=== PATIENT | male | born 1955 | race Caucasian/White ===

== ENCOUNTER 2024-11-21 16:57 | Inpatient (IN) ==
[2024-11-21 17:36] LABS: Basophils # (auto) 0.05 K/uL (0.00-0.20); Eosinophils # (auto) 0.03 K/uL (0.00-0.50); Eosinophils % (auto) 0.6 %; Hematocrit (blood only) 49.3 % (42.0-52.0); Hemoglobin 17.1 g/dl (14.0-18.0); Immature Granulocytes # (auto) 0.02 K/uL (0.01-0.20); Immature Granulocytes % (auto) 0.4 %; Lymphocytes # (auto) 0.65 K/uL (1.20-3.40); Lymphocytes % (auto) 12.7 %; Mean Corpuscular Hemoglobin 29.4 pg (25.0-34.0); Mean Corpuscular Hgb Conc 34.7 g/dL (32.0-36.0); Mean Corpuscular Volume 84.7 fL (80.0-100.0); Mean Platelet Volume 10.1 fL (9.4-12.4); Monocytes % (auto) 13.7 %; Neutrophils # (auto) 3.66 K/uL (1.40-6.50); Neutrophils % (auto) 71.6 %; Platelet Count 211 K/uL (130-400); RDW Coefficient of Variation 12.9 % (11.5-14.5); RDW Standard Deviation 39.7 fL (36.4-46.3); Red Blood Count 5.82 M/uL (4.70-6.10); White Blood Count 5.11 K/ul (4.8-10.8)
[2024-11-21 17:54] LABS: Albumin Level 4.2 gm/dl (3.4-5.0); BUN Creatinine Ratio 7.7 (10-20); Bilirubin Direct 0.1 mg/dl (0-0.2); Bilirubin,Total 0.6 mg/dl (0.2-1.0); Calcium 9.2 mg/dl (8.6-10.3); Creatinine Clr Calc Pharmacy 54.4 ml/min; Magnesium 1.8 mg/dl (1.7-2.4); Potassium 4.1 mmol/L (3.5-5.1); Total Protein 7.9 gm/dl (6.0-8.3)
[2024-11-21 18:00] LABS: Troponin I High Sensitivity 4.8 pg/ml (0-20)
[2024-11-21 18:05] LABS: Appearance Urine Clear (Clear); Bacteria Urine Automated None Seen (None Seen); Bilirubin Urine Negative (Negative); Blood Urine Negative (Negative); Cast Urine Automated 0-2 /lpf (0-2); Color Urine Yellow; Epithelial Cell Urine Auto 0-2 /hpf (0-2); Glucose Urine UA 3+ (Negative); Ketones Urine Trace (Negative); Leukocyte Esterase Urine Negative (Negative); Nitrite Urine Negative (Negative); Protein Urine 1+ (Negative); RBC Urine Automated 0-2 /hpf (0-2); Specific Gravity Urine 1.015 (1.000-1.030); Urobilinogen Urine Negative (Negative); WBC Urine Automated 0-5 /hpf (0-5); pH Urine 5.5 (4.5-7.5)
--- NOTE | 2024-11-21 18:12 | Emergency Department Note ---
Impression & Plan Fall, Weakness, Hypoxia, Influenza A ED Provider Note NAME: ELSIE BELL AGE: 69 SEX: Male INFORMANT: Patient and family ED PROVIDER(S): Jamal Davila MD CHIEF COMPLAINT: Multiple falls PLAN: Disposition: Admitted Outpatient prescription management: none Referral: None MEDICAL DECISION MAKING: Patient presented because of multiple falls. He was generally weak. His O2 saturation was low. Patient denied any trauma from the falls. Physical examination was benign other than his O2 requirement. Patient underwent CT imaging of the head as well as chest given his complaints of chronic headache, the fall, and his weakness. Patient had an unremarkable CT scan of the head as well as of the chest. I refer you to the EMR for further details. Patient's BioFire testing revealed the presence of influenza. This could explain his hypoxia and the increased weakness resulting in the multiple falls over the last 24 hours. Tickborne illness testing was added due to his chronic headache and fever complaints. Tamiflu was ordered. Discussed the need for further evaluation and management in the hospital and patient and family in agreement. Consultation was made with Dr. López Betancourt of the [facility] service. Patient was evaluated in the ER for further management. Care/management discussed with: sustainability manager Level of care consideration(s): After review of the information above and other included data, I feel the patient requires escalation of care to admission Triage Nursing notes: reviewed and agree them. Vital Signs: reviewed and remarkable for mild hypoxia Additional History obtained from: Family Chronic Medical/Social Conditions affecting care: Diabetes Prior/ Outside/ External records reviewed: none Differential Diagnosis: Infection, dehydration, metabolic abnormality, hypo/hyperglycemia, electrolyte disturbance, anemia, hypoxia, cardiac sources, intracerebral event, toxicologic, neurologic, as well as other pathologies. Diagnostics, independently interpreted by me: ECG: none Cardiac Monitoring: Cardiac monitoring ordered by me: The patient was placed on continuous cardiac monitoring and observed. It revealed a normal sinus rhythm at 82 beats per minute without ectopy or evidence of dysrhythmia. Medical decision rules: none Imaging studies: Head CT: A noncontrast CT scan of the head was performed and was negative for tumor, fracture, intracranial hemorrhage, or other acute pathology. CT scan of the chest is negative for pulmonary embolism or pneumonia. I refer you to the EMR for further details. HPI: 69 year old Male arrives for evaluation of a fall x 4. This started yesterday. Feels weak. Has been dealing with fatigue and fevers for 13 months. The patient also notes the following associated symptoms, headache x 13 months. Denies direct head trauma. Denies injury. The patient has been given no medication for relieving factors. Current pain is rated as 8/10. Pt denies LOC, fevers, chills, diaphoresis, visual changes, neck pain, chest pain, breathing difficulties, nausea, vomiting, abdominal pain, back pain, melena, hematochezia, urinary symptoms, numbness, lymphadenopathy, rash, or other complaints. PAST MEDICAL HISTORY: See Below, gout, elevated IgA levels PAST SURGICAL HISTORY: See Below, SOCIAL HISTORY: See Below, HOME MEDICATIONS: See Below ALLERGIES: See Below VITALS: See Below PHYSICAL EXAMINATION: GENERAL: Awake, fatigue-appearing, in no distress HENT: Normocephalic, atraumatic. Oropharynx unremarkable. EYES: Normal conjunctiva. Sclera non-icteric. NECK: Inspection normal. Non-tender. Supple. No nuchal rigidity. FROM. No masses. RESPIRATORY: Clear to auscultation. No wheezes. No rales. Normal respiratory effort. CARDIAC: Normal rate. Normal rhythm. No murmurs. No rubs. Extremities warm and well perfused. Pulses equal. No JVD. GI: Soft, non-distended. No tenderness to palpation. No rebound or guarding. No masses. RECTAL: Deferred. MUSCULOSKELETAL: Atraumatic. Chest examination reveals no tenderness. The back is symmetrical on inspection without obvious abnormality. There is no CVA tenderness to palpation. No joint edema. LOWER EXTREMITIES: Calves are equal size bilaterally and non-tender. No edema. No discoloration. NEURO: Normal sensorium. No sensory or motor deficits noted. SKIN: No rash or jaundice noted. PROCEDURES: none CRITICAL CARE: none OBSERVATION NOTE: none Past Med/Surg History Problem List (Updated 11/21/24 @ 23:43 by Jamal Davila MD) Influenza A (Acute) Hypoxia (Acute) Fall (Acute) Idiopathic polyneuropathy Gout Weakness (Acute) Arthralgia Myalgia Medical History Hx of diabetes mellitus Hypothyroidism Social History (Updated 05/03/24 @ 12:59 by Cristian Cooley DO) Smoking Status: Never smoker Hx Alcohol Use: No Preferred Language: Vietnamese Home Health Clinical Liaison Required: No Feels Safe at Home: Yes Allergies Allergies Allergy/AdvReac Type Severity Reaction Status Date / Time lidocaine AdvReac Mild Rash Verified 11/21/24 22:59 Home Meds Home Medications Medication Instructions Recorded Confirmed Vitamin D3 See Rx Instructions .Route .COMPLEX 12/22/23 11/21/24 levothyroxine 137 mcg tablet 137 mcg PO HS 12/22/23 11/21/24 lisinopril 5 mg tablet 5 mg PO DAILY 12/22/23 11/21/24 metformin 500 mg tablet,extended 1,500 mg PO UD 12/22/23 11/21/24 release 24 hr aspirin 81 mg tablet,delayed 81 mg PO DAILY 05/03/24 11/21/24 release (Adult Low Dose Aspirin) atorvastatin 40 mg tablet 40 mg PO DAILY 05/03/24 11/21/24 coQ10 (ubiquinol) 100 mg capsule 100 mg PO BID 11/21/24 11/21/24 duloxetine 60 mg capsule,delayed 60 mg PO DAILY 11/21/24 11/21/24 release duloxetine 60 mg capsule,delayed 60 mg PO DAILY 11/21/24 11/21/24 release melatonin 10 mg tablet 10 mg PO HS PRN Sleep 11/21/24 11/21/24 Previous Rx's Medication Instructions Recorded allopurinol 100 mg tablet 100 mg PO DAILY #90 tabs 07/30/24 Results & Data (ED) Vital Signs Vital Signs - 24 hr 11/21/24 17:10 11/21/24 17:36 11/21/24 17:45 Temperature 37.3 C Temperature Source Oral Pulse Rate 80 80 Pulse Rate [Apical] 78 Pulse Rate from SpO2 Sensor Pulse Rhythm Regular Pulse Strength Normal Respiratory Rate 20 16 18 Respiratory Effort / Characteristics Non-Labored Spontaneous Non-Labored Spontaneous Respiratory Depth Normal Normal Blood Pressure 117/75 Blood Pressure [Right Arm] 133/91 Blood Pressure Mean 89 Blood Pressure Mean [Right Arm] 105 Blood Pressure Position Sitting Blood Pressure Position [Right Arm] Semi-fowlers Pulse Oximetry 89 L 96 95 Oxygen Delivery Method Room Air Nasal Cannula Nasal Cannula Oxygen Flow Rate 2 2 Sepsis Recent Fever Within 48 Hours Yes Sepsis New/Unexplained Change in Mental Status N/A Sepsis Action Taken by Nursing No Action Required 11/21/24 18:00 11/21/24 18:13 11/21/24 18:15 Temperature Temperature Source Pulse Rate 79 81 Pulse Rate [Apical] 82 Pulse Rate from SpO2 Sensor Pulse Rhythm Pulse Strength Respiratory Rate 18 21 Respiratory Effort / Characteristics Non-Labored Spontaneous Respiratory Depth Normal Blood Pressure 129/94 Blood Pressure [Right Arm] Blood Pressure Mean 113 Blood Pressure Mean [Right Arm] Blood Pressure Position Blood Pressure Position [Right Arm] Pulse Oximetry 95 95 Oxygen Delivery Method Nasal Cannula Nasal Cannula Oxygen Flow Rate 2 2 Sepsis Recent Fever Within 48 Hours Sepsis New/Unexplained Change in Mental Status Sepsis Action Taken by Nursing 11/21/24 18:15 11/21/24 18:18 11/21/24 18:45 Temperature Temperature Source Pulse Rate 84 Pulse Rate [Apical] 86 Pulse Rate from SpO2 Sensor 82 Pulse Rhythm Pulse Strength Respiratory Rate 23 17 Respiratory Effort / Characteristics Non-Labored Spontaneous Respiratory Depth Normal Blood Pressure 129/94 Blood Pressure [Right Arm] 140/99 Blood Pressure Mean 113 Blood Pressure Mean [Right Arm] 112 Blood Pressure Position Blood Pressure Position [Right Arm] Semi-fowlers Pulse Oximetry 95 95 Oxygen Delivery Method Nasal Cannula Oxygen Flow Rate 2 Sepsis Recent Fever Within 48 Hours Sepsis New/Unexplained Change in Mental Status Sepsis Action Taken by Nursing 11/21/24 18:46 11/21/24 19:00 11/21/24 19:00 Temperature Temperature Source Pulse Rate 82 Pulse Rate [Apical] 83 Pulse Rate from SpO2 Sensor 82 Pulse Rhythm Pulse Strength Respiratory Rate 20 21 Respiratory Effort / Characteristics Non-Labored Spontaneous Respiratory Depth Normal Blood Pressure 140/99 Blood Pressure [Right Arm] 124/79 Blood Pressure Mean 99 Blood Pressure Mean [Right Arm] 94 Blood Pressure Position Blood Pressure Position [Right Arm] Semi-fowlers Pulse Oximetry 95 94 Oxygen Delivery Method Nasal Cannula Oxygen Flow Rate 2 Sepsis Recent Fever Within 48 Hours Sepsis New/Unexplained Change in Mental Status Sepsis Action Taken by Nursing 11/21/24 19:00 11/21/24 19:00 11/21/24 19:15 Temperature Temperature Source Pulse Rate Pulse Rate [Apical] Pulse Rate from SpO2 Sensor Pulse Rhythm Pulse Strength Respiratory Rate Respiratory Effort / Characteristics Respiratory Depth Blood Pressure 124/79 124/79 117/83 Blood Pressure [Right Arm] Blood Pressure Mean 92 92 90 Blood Pressure Mean [Right Arm] Blood Pressure Position Blood Pressure Position [Right Arm] Pulse Oximetry Oxygen Delivery Method Oxygen Flow Rate Sepsis Recent Fever Within 48 Hours Sepsis New/Unexplained Change in Mental Status Sepsis Action Taken by Nursing 11/21/24 19:15 11/21/24 19:21 11/21/24 19:30 Temperature Temperature Source Pulse Rate 85 85 82 Pulse Rate [Apical] Pulse Rate from SpO2 Sensor 85 85 83 Pulse Rhythm Pulse Strength Respiratory Rate 17 21 17 Respiratory Effort / Characteristics Respiratory Depth Blood Pressure Blood Pressure [Right Arm] Blood Pressure Mean Blood Pressure Mean [Right Arm] Blood Pressure Position Blood Pressure Position [Right Arm] Pulse Oximetry 93 92 93 Oxygen Delivery Method Oxygen Flow Rate Sepsis Recent Fever Within 48 Hours Sepsis New/Unexplained Change in Mental Status Sepsis Action Taken by Nursing 11/21/24 19:45 11/21/24 19:45 11/21/24 19:48 Temperature Temperature Source Pulse Rate 82 Pulse Rate [Apical] Pulse Rate from SpO2 Sensor 84 Pulse Rhythm Pulse Strength Respiratory Rate 19 Respiratory Effort / Characteristics Respiratory Depth Blood Pressure 131/67 131/67 Blood Pressure [Right Arm] Blood Pressure Mean 82 82 Blood Pressure Mean [Right Arm] Blood Pressure Position Blood Pressure Position [Right Arm] Pulse Oximetry 94 Oxygen Delivery Method Oxygen Flow Rate Sepsis Recent Fever Within 48 Hours Sepsis New/Unexplained Change in Mental Status Sepsis Action Taken by Nursing 11/21/24 20:15 11/21/24 20:15 11/21/24 20:21 Temperature Temperature Source Pulse Rate 87 Pulse Rate [Apical] Pulse Rate from SpO2 Sensor 87 Pulse Rhythm Pulse Strength Respiratory Rate 17 Respiratory Effort / Characteristics Respiratory Depth Blood Pressure 131/83 131/83 Blood Pressure [Right Arm] Blood Pressure Mean 99 99 Blood Pressure Mean [Right Arm] Blood Pressure Position Blood Pressure Position [Right Arm] Pulse Oximetry 92 Oxygen Delivery Method Oxygen Flow Rate Sepsis Recent Fever Within 48 Hours Sepsis New/Unexplained Change in Mental Status Sepsis Action Taken by Nursing 11/21/24 20:59 Temperature Temperature Source Pulse Rate Pulse Rate [Apical] 80 Pulse Rate from SpO2 Sensor Pulse Rhythm Pulse Strength Respiratory Rate 26 H Respiratory Effort / Characteristics Non-Labored Spontaneous Respiratory Depth Normal Blood Pressure Blood Pressure [Right Arm] 124/85 Blood Pressure Mean Blood Pressure Mean [Right Arm] 98 Blood Pressure Position Blood Pressure Position [Right Arm] Semi-fowlers Pulse Oximetry 92 Oxygen Delivery Method Nasal Cannula Oxygen Flow Rate 2 Sepsis Recent Fever Within 48 Hours Sepsis New/Unexplained Change in Mental Status Sepsis Action Taken by Nursing Laboratory Data 11/21/24 15:18 11/21/24 17:21 Lab Results 11/21/24 11/21/24 11/21/24 Range/Units 15:18 17:21 17:42 WBC 5.11 (4.8-10.8) K/ul RBC 5.82 (4.70-6.10) M/uL Hgb 17.1 (14.0-18.0) g/dl Hct 49.3 (42.0-52.0) % MCV 84.7 (80.0-100.0) fL MCH 29.4 (25.0-34.0) pg MCHC 34.7 (32.0-36.0) g/dL RDW Std Deviation 39.7 (36.4-46.3) fL RDW Coeff of Tori 12.9 (11.5-14.5) % Plt Count 211 (130-400) K/uL MPV 10.1 (9.4-12.4) fL Immature Gran % (Auto) 0.4 % Neut % (Auto) 71.6 % Lymph % (Auto) 12.7 % Lamb % (Auto) 13.7 % Eos % (Auto) 0.6 % Baso % (Auto) 1.0 % Neut # (Auto) 3.66 (1.40-6.50) K/uL Lymph # (Auto) 0.65 L (1.20-3.40) K/uL Lamb # (Auto) 0.70 H (0.11-0.59) K/uL Eos # (Auto) 0.03 (0.00-0.50) K/uL Baso # (Auto) 0.05 (0.00-0.20) K/uL Immature Gran # (Auto) 0.02 (0.01-0.20) K/uL ESR 27 H (0-20) mm/hr Sodium 138 (136-145) mmol/L Potassium 4.1 (3.5-5.1) mmol/L Chloride 103 (98-107) mmol/L Carbon Dioxide 27 (21-32) mmol/L Anion Gap 8 (3-11) BUN 10 (6-23) mg/dl Creatinine 1.30 (0.6-1.4) mg/dl Est Cr Clr Drug Dosing 54.4 ml/min eGFR 59.84 BUN/Creatinine Ratio 7.7 L (10-20) Glucose 179 H (70-99(Fasting)) mg/dl Lactate (0.4-2.0) mmol/L Calcium 9.2 (8.6-10.3) mg/dl Magnesium 1.8 (1.7-2.4) mg/dl Total Bilirubin 0.6 (0.2-1.0) mg/dl Direct Bilirubin 0.1 (0-0.2) mg/dl AST 25 (13-39) U/L ALT 30 (7-52) U/L Alkaline Phosphatase 62 (34-104) U/L Troponin I High Sens 4.8 (0-20) pg/ml C-Reactive Protein 4.12 H (0-0.5) mg/dl Total Protein 7.9 (6.0-8.3) gm/dl Albumin 4.2 (3.4-5.0) gm/dl Procalcitonin 0.09 (0-0.5) ng/ml Urine Color Yellow Urine Appearance Clear (Clear) Urine pH 5.5 (4.5-7.5) Ur Specific Garfield 1.015 (1.000-1.030) Urine Protein 1+ H (Negative) Urine Glucose (UA) 3+ H (Negative) Urine Ketones Trace H (Negative) Urine Blood Negative (Negative) Urine Nitrite Negative (Negative) Urine Bilirubin Negative (Negative) Urine Urobilinogen Negative (Negative) Ur Leukocyte Esterase Negative (Negative) Urine WBC (Auto) 0-5 (0-5) /hpf Urine RBC (Auto) 0-2 (0-2) /hpf U Hyaline Cast (Auto) 0-2 (0-2) /lpf U Epithel Cells (Auto) 0-2 (0-2) /hpf Urine Bacteria (Auto) None Seen (None Seen) Nasal Influ A H1 2008 PCR DETECTED A (NotDetected) Adenovirus (PCR) Not Detected (NotDetected) Anaplasma Smear See Comment Babesia Smear See Comment B. pertussis DNA (PCR) Not Detected (NotDetected) B.parapertussis DNA PCR Not Detected (NotDetected) Lyme Disease Screen Negative (Negative) C. pneumoniae DNA (PCR) Not Detected (NotDetected) Coronavirus OC43 (PCR) Not Detected (NotDetected) Coronavirus HKU1 (PCR) Not Detected (NotDetected) Coronavirus 229E (PCR) Not Detected (NotDetected) SARS-CoV-2 (PCR) Not Detected (NotDetected) Coronavirus NL63 (PCR) Not Detected (NotDetected) Human Metapneumovir PCR Not Detected (NotDetected) Influenza Type B (PCR) Not Detected (NotDetected) M. pneumoniae (PCR) Not Detected (NotDetected) Parainfluenza 1 (PCR) Not Detected (NotDetected) Parainfluenza 2 (PCR) Not Detected (NotDetected) Parainfluenza 3 (PCR) Not Detected (NotDetected) Parainfluenza 4 (PCR) Not Detected (NotDetected) RSV (PCR) Not Detected (NotDetected) Entero/Rhino (PCR) Not Detected (NotDetected) 11/21/24 Range/Units 18:06 WBC (4.8-10.8) K/ul RBC (4.70-6.10) M/uL Hgb (14.0-18.0) g/dl Hct (42.0-52.0) % MCV (80.0-100.0) fL MCH (25.0-34.0) pg MCHC (32.0-36.0) g/dL RDW Std Deviation (36.4-46.3) fL RDW Coeff of Tori (11.5-14.5) % Plt Count (130-400) K/uL MPV (9.4-12.4) fL Immature Gran % (Auto) % Neut % (Auto) % Lymph % (Auto) % Lamb % (Auto) % Eos % (Auto) % Baso % (Auto) % Neut # (Auto) (1.40-6.50) K/uL Lymph # (Auto) (1.20-3.40) K/uL Lamb # (Auto) (0.11-0.59) K/uL Eos # (Auto) (0.00-0.50) K/uL Baso # (Auto) (0.00-0.20) K/uL Immature Gran # (Auto) (0.01-0.20) K/uL ESR (0-20) mm/hr Sodium (136-145) mmol/L Potassium (3.5-5.1) mmol/L Chloride (98-107) mmol/L Carbon Dioxide (21-32) mmol/L Anion Gap (3-11) BUN (6-23) mg/dl Creatinine (0.6-1.4) mg/dl Est Cr Clr Drug Dosing ml/min eGFR BUN/Creatinine Ratio (10-20) Glucose (70-99(Fasting)) mg/dl Lactate 1.4 (0.4-2.0) mmol/L Calcium (8.6-10.3) mg/dl Magnesium (1.7-2.4) mg/dl Total Bilirubin (0.2-1.0) mg/dl Direct Bilirubin (0-0.2) mg/dl AST (13-39) U/L ALT (7-52) U/L Alkaline Phosphatase (34-104) U/L Troponin I High Sens (0-20) pg/ml C-Reactive Protein (0-0.5) mg/dl Total Protein (6.0-8.3) gm/dl Albumin (3.4-5.0) gm/dl Procalcitonin (0-0.5) ng/ml Urine Color Urine Appearance (Clear) Urine pH (4.5-7.5) Ur Specific Garfield (1.000-1.030) Urine Protein (Negative) Urine Glucose (UA) (Negative) Urine Ketones (Negative) Urine Blood (Negative) Urine Nitrite (Negative) Urine Bilirubin (Negative) Urine Urobilinogen (Negative) Ur Leukocyte Esterase (Negative) Urine WBC (Auto) (0-5) /hpf Urine RBC (Auto) (0-2) /hpf U Hyaline Cast (Auto) (0-2) /lpf U Epithel Cells (Auto) (0-2) /hpf Urine Bacteria (Auto) (None Seen) Nasal Influ A H1 2009 PCR (NotDetected) Adenovirus (PCR) (NotDetected) Anaplasma Smear Babesia Smear B. pertussis DNA (PCR) (NotDetected) B.parapertussis DNA PCR (NotDetected) Lyme Disease Screen (Negative) C. pneumoniae DNA (PCR) (NotDetected) Coronavirus OC43 (PCR) (NotDetected) Coronavirus HKU1 (PCR) (NotDetected) Coronavirus 229E (PCR) (NotDetected) SARS-CoV-2 (PCR) (NotDetected) Coronavirus NL63 (PCR) (NotDetected) Human Metapneumovir PCR (NotDetected) Influenza Type B (PCR) (NotDetected) M. pneumoniae (PCR) (NotDetected) Parainfluenza 1 (PCR) (NotDetected) Parainfluenza 2 (PCR) (NotDetected) Parainfluenza 3 (PCR) (NotDetected) Parainfluenza 4 (PCR) (NotDetected) RSV (PCR) (NotDetected) Entero/Rhino (PCR) (NotDetected) Administered Medications Discontinued Medications Magnesium Sulfate/Dextrose (Magnesium Sulfate / D5w) 1 gm in 100 mls @ 50 mls/hr IV ONE ONE Stop: 11/21/24 23:10 Last Infusion: 11/21/24 23:32 Dose: Infused Documented By: Admin: 11/21/24 21:28 Dose: 50 mls/hr Documented By: SAMRA Ioversol (Optiray 320 125ml) 118 ml IV ONCE ONE Stop: 11/21/24 18:48 Last Admin: 11/21/24 18:47 Dose: 118 ml Documented By: ELEANOR Oseltamivir Phosphate (Oseltamivir Phosphate 75 Mg Cap) 75 mg PO NOW STA; Protocol Stop: 11/21/24 19:59 Last Admin: 11/21/24 20:59 Dose: 75 mg Documented By: SAMRA Imaging Data Radiologist's Impression: Chest CTA 11/21/24 18:12 Clinical history: Weakness and hypoxia Technique: Axial computed tomography images were obtained of the chest after the administration of intravenous contrast according to the CT angiogram protocol Findings: There is no definite sign of pulmonary embolism. There is subsegmental atelectasis in both lower lobes. The lungs otherwise appear clear without infiltrate or mass. There is no pleural effusion or pneumothorax. There is no sign of pulmonary fibrosis or other diffuse interstitial process. No endobronchial lesion is seen There is no mediastinal, hilar, or axillary adenopathy. The thoracic aorta appears unremarkable with no sign of aneurysm or dissection. There is no pericardial effusion. There is extensive coronary atherosclerosis There are multiple gallstones. There is no definite sign of acute cholecystitis. There is a small hiatal hernia. No fracture is seen. No focal osseous lesion is evident Impression: 1. No definite sign of pulmonary embolism 2. Mild bilateral lower lobe atelectasis 3. Small hiatal hernia 4. Cholelithiasis 5. Extensive coronary atherosclerosis Electronically signed by Murali Schmitt 11-21-2024 7:[address] 11/21/24 18:12 Clinical History: Headache Technique: Axial computed tomography images were obtained of the brain without intravenous contrast. Findings: There is cerebral atrophy, within expected limits for the patient's age. Areas of decreased attenuation are seen within the periventricular white matter, likely representing chronic small vessel ischemic disease. There is no definite sign of acute or old infarction. No intracranial hemorrhage is evident. No definite mass lesion is seen on this noncontrast examination. There is no midline shift or other form of herniation. There is mild ventricular prominence that is likely due to the atrophy. No definite hydrocephalus is seen. No fracture is identified. The orbits and the visualized paranasal sinuses appear unremarkable. The mastoid air cells appear clear. Impression: 1. Cerebral atrophy and chronic small vessel ischemic disease 2. Otherwise unremarkable noncontrast CT of the brain Electronically signed by Murali Schmitt 11-21-2024 6:57 PM Discharge Plan Visit Data Chief Complaint: Illness Stated Complaint: WEAKNESS, FALL x2 ED Provider: Jamal Davila Discharge Problem: Fall, Weakness, Hypoxia, Influenza A Discharge Instructions Interventions: ED Discharge Assessment Last Done: 11/21/24 22:11
[2024-11-21 18:35] LABS: C Reactive Protein 4.12 mg/dl (0-0.5)
[2024-11-21] MEDS: OPTIRAY 320 125ml IV ONE (18:47)
[2024-11-21 18:58] LABS: Adenovirus PCR Not Detected (NotDetected); Bordetella parapertussis PCR Not Detected (NotDetected); Bordetella pertussis PCR Not Detected (NotDetected); Chlamydia pneumoniae PCR Not Detected (NotDetected); Coronavirus 229E PCR Not Detected (NotDetected); Coronavirus CoV-2 (COVID19)PCR Not Detected (NotDetected); Coronavirus HKU1 PCR Not Detected (NotDetected); Coronavirus NL63 PCR Not Detected (NotDetected); Coronavirus OC43PCR Not Detected (NotDetected); Human Metapneumovirus PCR Not Detected (NotDetected); Influenza A (H1 2009) PCR DETECTED (NotDetected); Influenza B PCR Not Detected (NotDetected); Mycoplasma pneumoniae PCR Not Detected (NotDetected); Parainfluenza Virus 1 PCR Not Detected (NotDetected); Parainfluenza Virus 2 PCR Not Detected (NotDetected); Parainfluenza Virus 3 PCR Not Detected (NotDetected); Parainfluenza Virus 4 PCR Not Detected (NotDetected); Respiratory Syncytial VirusPCR Not Detected (NotDetected); Rhinovirus/Enterovirus PCR Not Detected (NotDetected)
--- NOTE | 2024-11-21 18:58 | CT Scan Report ---
Clinical History: Headache Technique: Axial computed tomography images were obtained of the brain without intravenous contrast. Findings: There is cerebral atrophy, within expected limits for the patient's age. Areas of decreased attenuation are seen within the periventricular white matter, likely representing chronic small vessel ischemic disease. There is no definite sign of acute or old infarction. No intracranial hemorrhage is evident. No definite mass lesion is seen on this noncontrast examination. There is no midline shift or other form of herniation. There is mild ventricular prominence that is likely due to the atrophy. No definite hydrocephalus is seen. No fracture is identified. The orbits and the visualized paranasal sinuses appear unremarkable. The mastoid air cells appear clear. Impression: 1. Cerebral atrophy and chronic small vessel ischemic disease 2. Otherwise unremarkable noncontrast CT of the brain Electronically signed by Murali Schmitt 11-21-2024 6:57 PM
--- NOTE | 2024-11-21 19:01 | CT Scan Report ---
Clinical history: Weakness and hypoxia Technique: Axial computed tomography images were obtained of the chest after the administration of intravenous contrast according to the CT angiogram protocol Findings: There is no definite sign of pulmonary embolism. There is subsegmental atelectasis in both lower lobes. The lungs otherwise appear clear without infiltrate or mass. There is no pleural effusion or pneumothorax. There is no sign of pulmonary fibrosis or other diffuse interstitial process. No endobronchial lesion is seen There is no mediastinal, hilar, or axillary adenopathy. The thoracic aorta appears unremarkable with no sign of aneurysm or dissection. There is no pericardial effusion. There is extensive coronary atherosclerosis There are multiple gallstones. There is no definite sign of acute cholecystitis. There is a small hiatal hernia. No fracture is seen. No focal osseous lesion is evident Impression: 1. No definite sign of pulmonary embolism 2. Mild bilateral lower lobe atelectasis 3. Small hiatal hernia 4. Cholelithiasis 5. Extensive coronary atherosclerosis Electronically signed by Murali Schmitt 11-21-2024 7:01 PM
--- NOTE | 2024-11-21 20:23 | History & Physical Report ---
Date of Service November 21, 2024 Assessment & Plan (1) Hypoxia: (2) Influenza A: (3) Fall: (4) Generalized weakness: (5) Ambulatory dysfunction: (6) Hypomagnesemia: (7) Fatigue: (8) Idiopathic polyneuropathy: (9) Weight loss, unintentional: (10) Urinary incontinence: Plan Patient is a 69-year-old male with a past medical history of gout, hyperlipidemia, T2DM, hypothyroidism, insomnia, and ongoing fatigue and fever x 1 year with essentially negative workup. Patient presented to the ED after having 4 falls in the past 24 hours secondary to weakness found to be due to influenza A. Patient came hypoxic at 89% on room air and was 2 L on nasal cannula on admission. Patient's family is concerned about taking care of him at home with falls so he is being admitted for PT/OT evals and case management is consulted. #Hypoxia/Influenza A 89 on RA -> 2 L NC CTA showing no acute changes, mild bl LL atelectasis wean O2 as tolerated continue Tamiflu Tylenol prn, Tessalon Perles, Mucinex incentive spirometry isolation precautions #fall/ambulatory dysfunction/generalized weakness 4 falls in past 24 hours 2/2 weakness from influenza A head CT negative for acute changes PT/OT ordered fall and aspiration precautions case management consult - patients considering assistance at home #chronic fever/myalgia/fatigue has had extensive workup, follows with hematology, rheumatology, neurology did have elevated IgA and had negative bone marrow biopsy previous tick borne panels negative EMG 05/06/24 showed polyneuropathy with mixed pathology 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[place] [id number] appears recent referral to autoinflammatory clinic with [facility] ESR 27, CRP 4.[address] showed no acute changes, showed chronic small vessel ischemic dz follow blood cultures ED provider ordered tick borne panel, Q fever titers, typus titers patient declines steroid use at this time Mag 1.8 - will give 1G IV mag weight loss - pt reports 20 lb weight loss over 2 weeks - diet consult #urinary incontinence reports 1 episode of incontinence when straining to ambulate 11/21 denies other urinary symptoms UA essentially negative - 1+ protein, 3+ glucose, trace ketones PSA added to am labs bladder scan and straight cath prn #incidental findings hiatal hernia and cholelithiasis without cholecystis seen on AP CT LFTs WNL follow with PCP Chronic stable diagnoses: DM - continue metformin HLD - continue statin gout - continue allopurinol hypothyroidism - continue levothyroxine insomnia - continue Cymbalta and melatonin 10mg HS renal protection - continue lisinopril 5mg daily VTE ppx: SCDs Diet: t2dm Dispo: med/tele Admission and Anticipated Discharge Date Admission Date: 11/21/24 History of Present Illness Chief Complaint: illness Primary Care Provider: Raymon Hercules Patient is a 69-year-old male with a past medical history of gout, hyperlipidemia, T2DM, hypothyroidism, insomnia, and ongoing fatigue and fever x 1 year with essentially negative workup. Patient presented to the ED after having 4 falls in the past 24 hours secondary to weakness found to be due to influenza A. Patient came hypoxic at 89% on room air and was 2 L on nasal cannula on admission. Patient's family is concerned about taking care of him at home with falls so he is being admitted for PT/OT evals and case management is consulted. Patient seen at bedside with his and son present. He stated that he fell 4 times over the past 24 hours due to weakness which she thinks is from the infl uenza A. He denies any dizziness, lightheadedness, chest pain, shortness of breath prior to the falls. He denies tripping over anything. His family reports that EMS came to the house 1 time last night for lift assistance but after his fourth fall this morning his family insisted he come to the ED for evaluation. He denies any head strike. He denies any current pain. He does endorse cough, shortness of breath, and worsening of his fever for a few days. Patient also stated he had 1 episode of urinary incontinence when he was straining to stand up earlier today, however denies denies any other urinary symptoms. He is concerned about his prostate, PSA added to a.m. labs. Patient's family reports he has had extensive workup for chronic low-grade fever and fatigue for roughly a year with essentially negative workup. His is concerned with his recent falls about taking care of him at home, patient and family agreeable to PT/OT evals and case management consulted. Steroids helping patient's symptoms, he declines use at this time as to resolve his glucose levels. Patient also reports a 20 pound weight loss over the past 2 weeks. He stated he does not eat well at home does not take any protein supplements/Ensure shakes. Agreeable to dietitian consult. He denies nicotine or alcohol use. He does not use oxygen at baseline. He got his home medications this morning but did not get his evening medications. He wishes to be DNR/DNI. Allergies Allergy/AdvReac Type Severity Reaction Status Date / Time lidocaine AdvReac Mild Rash Verified 11/21/24 22:59 Home Medications Medication Instructions Recorded Confirmed Type Vitamin D3 See Rx Instructions .Route .COMPLEX 12/22/23 11/21/24 History levothyroxine 137 mcg tablet 137 mcg PO HS 12/22/23 11/21/24 History lisinopril 5 mg tablet 5 mg PO DAILY 12/22/23 11/21/24 History metformin 500 mg tablet,extended 1,500 mg PO UD 12/22/23 11/21/24 History release 24 hr aspirin 81 mg tablet,delayed 81 mg PO DAILY 05/03/24 11/21/24 History release (Adult Low Dose Aspirin) atorvastatin 40 mg tablet 40 mg PO DAILY 05/03/24 11/21/24 History allopurinol 100 mg tablet 100 mg PO DAILY #90 tabs 07/30/24 11/21/24 Rx coQ10 (ubiquinol) 100 mg capsule 100 mg PO BID 11/21/24 11/21/24 History duloxetine 60 mg capsule,delayed 60 mg PO DAILY 11/21/24 11/21/24 History release duloxetine 60 mg capsule,delayed 60 mg PO DAILY 11/21/24 11/21/24 History release melatonin 10 mg tablet 10 mg PO HS PRN Sleep 11/21/24 11/21/24 History oseltamivir 30 mg capsule (Tamiflu) 30 mg PO BID 5 days #10 caps 11/22/24 Rx Past Med/Surg History Problem List (Updated 11/22/24 @ 04:33 by Tiffanie Cunningham PA-C) Weight loss, unintentional Hypomagnesemia Urinary incontinence Fatigue Fever Ambulatory dysfunction Generalized weakness Influenza A (Acute) Hypoxia (Acute) Fall (Acute) Idiopathic polyneuropathy Gout Weakness (Acute) Arthralgia Myalgia Medical History Hx of diabetes mellitus Hypothyroidism Social History (Updated 05/03/24 @ 12:59 by Cristian Cooley DO) Smoking Status: Never smoker Hx Alcohol Use: No Hx Substance Use: No Preferred Language: Mozambican Communication Ability: Effective 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 Non-toxic appearing. HEENT- EOMI, mucous membranes moist. Hearing grossly intact. Heart-normal S1 and S2. No murmurs, rubs or gallops. Lungs-clear bilaterally, no respiratory distress, no accessory muscle use. 2lNC. Abdomen-normal bowel sounds and soft. No ascites noted. Non-tender. Extremities- no clubbing, cyanosis, or edema. Results & Data Results & Data Vital Signs (Past 12 Hours) Vital Signs Temp Pulse Pulse Resp BP BP Pulse Ox 11/21/24 19:00 83 20 124/79 95 11/21/24 18:45 86 17 140/99 95 11/21/24 18:15 81 21 129/94 95 11/21/24 18:13 79 11/21/24 18:00 82 18 95 11/21/24 17:45 78 18 133/91 95 11/21/24 17:36 80 16 96 11/21/24 17:10 37.3 C 80 20 117/75 89 L O2 Del Method O2 Flow Rate 11/21/24 19:00 Nasal Cannula 2 11/21/24 18:45 Nasal Cannula 2 11/21/24 18:15 Nasal Cannula 2 11/21/24 18:13 11/21/24 18:00 Nasal Cannula 2 11/21/24 17:45 Nasal Cannula 2 11/21/24 17:36 Nasal Cannula 2 11/21/24 17:10 Room Air Laboratory Results Reviewed CBC, CMP, Pro-Sanchez, ESR, CRP, bio fire, UA, troponin, mag Diagnostic Findings reviewed head ct and chest cta Medications Administered ed - tamiflu 75mg PO ECG Additional Comments: ordered Code Status & VTE Plan Code Status dnr/dni VTE Prophylaxis Plan VTE Prophylaxis will be ordered: Yes Supervising Physician Co-Signing Physician Notes Attending addendum: I have physically seen this patient, have supervised the JULISSA's activities, and agree with the H&P unless as otherwise noted. Assessment and Plan: The patient is a 69-year-old male with past medical history including gout, h yperlipidemia, diabetes mellitus type 2, hypothyroidism, insomnia and fatigue over the past year. He presents to the emergency department after 4 falls in the past 24 hours secondary to weakness and thought associated with influenza A. Patient is referred to the emergency department with a pulse ox of 89% on room air, and family concerns regarding need for ongoing therapy related to frequent falls. Acute respiratory failure with hypoxia/influenza A- Presently 89% on room air, proved to 94% on [address] angiography negative for PE, but does show mild bilateral lower lobe atelectasis Start Tamiflu 75 mg p.o. twice daily Acetaminophen 650 mg every 6 hours as needed for mild pain or fever Tessalon Perles 100 mg p.o. 3 times daily as needed Mucinex 600 mg p.o. every 12 hours Incentive spirometry Droplet precautions #Fall/ambulatory dysfunction/generalized weakness- Multifactorial chronic including aggravation by influenza A of underlying process Consult PT/OT Chronic fever/myalgias/fatigue-patient has had extensive workup with hematology, rheumatology and neurology in the outpatient setting EMG has showed polyneuropathy with next pathology on 05/06/2024 Has an upcoming appointment with other inflammatory clinic at [facility] Hypomagnesemia- Magnesium 1.8 on admission, replace IV and recheck laboratories in the a.m. Remaining orders and notations as noted PG Care Time/CCT Total # of Minutes Spent Total Time Spent with Patient: Total time spent is greater than 50% in coordination of care (as documented) at patient's floor/unit and/or counseling patient: Coding Level of Care Code 03816 INT INP/OBS CARE 3/75MIN Diagnoses Hypoxia R09.02 Influenza A J10.1 Fall W19.XXXA Generalized weakness R53.1 Ambulatory dysfunction R26.2 Hypomagnesemia E83.42 Fatigue R53.83 Idiopathic polyneuropathy G60.9 Weight loss, unintentional R63.4 Urinary incontinence R32
[2024-11-21] MEDS: OSELTAMIVIR PHOSPHATE 75 MG CAP PO STA (20:59)
[2024-11-21] MEDS: MAGNESIUM SULFATE / D5W 1 GM/100 ML BAG IV ONE (21:28)
[2024-11-21] MEDS ORDERED: ACETAMINOPHEN 325 MG TAB PO PRN (22:11)
[2024-11-21] MEDS ORDERED: ONDANSETRON INJ 2 MG/ML 2 ML VIAL IV PRN (22:11)
[2024-11-21] MEDS ORDERED: DOCUSATE SODIUM 100 MG CAP PO PRN (22:11)
[2024-11-21] MEDS ORDERED: metFORMIN HCL ER 500 MG TABCR PO SCH (22:11)
[2024-11-21] MEDS ORDERED: DEXTROSE 50% 50 ML SYRINGE IV PRN (23:15)
[2024-11-21] MEDS ORDERED: CARBOHYDRATES FOR HYPOGLYCEMIA PO PRN (23:15)
[2024-11-21] MEDS ORDERED: GLUCOSE 40% GEL 15 GM TUBE PO PRN (23:15)
[2024-11-21] MEDS ORDERED: GLUCAGON FOR INJ 1 MG VIAL SQ PRN (23:15)
[2024-11-21] MEDS ORDERED: GLUCOSE 10 TAB/TUBE PO PRN (23:15)
[2024-11-22] MEDS: INSULIN ASPART PER UNIT CHARGE SC SCH (00:19)
[2024-11-22 04:35] LABS: Basophils # (auto) 0.04 K/uL (0.00-0.20); Basophils % (auto) 0.8 %; Eosinophils # (auto) 0.05 K/uL (0.00-0.50); Eosinophils % (auto) 1.1 %; Hematocrit (blood only) 45.9 % (42.0-52.0); Hemoglobin 15.8 g/dl (14.0-18.0); Immature Granulocytes # (auto) 0.02 K/uL (0.01-0.20); Immature Granulocytes % (auto) 0.4 %; Lymphocytes # (auto) 1.15 K/uL (1.20-3.40); Lymphocytes % (auto) 24.2 %; Mean Corpuscular Hemoglobin 29.6 pg (25.0-34.0); Mean Corpuscular Hgb Conc 34.4 g/dL (32.0-36.0); Mean Corpuscular Volume 86.1 fL (80.0-100.0); Mean Platelet Volume 10.4 fL (9.4-12.4); Monocytes # (auto) 0.85 K/uL (0.11-0.59); Monocytes % (auto) 17.9 %; Neutrophils # (auto) 2.65 K/uL (1.40-6.50); Neutrophils % (auto) 55.6 %; Platelet Count 190 K/uL (130-400); RDW Standard Deviation 40.3 fL (36.4-46.3); Red Blood Count 5.33 M/uL (4.70-6.10); White Blood Count 4.76 K/ul (4.8-10.8)
[2024-11-22 04:51] LABS: Albumin Globulin Ratio 1.2 (0.9-2); Albumin Level 3.8 gm/dl (3.4-5.0); BUN Creatinine Ratio 8.9 (10-20); Bilirubin,Total 0.5 mg/dl (0.2-1.0); Calcium 8.9 mg/dl (8.6-10.3); Creatinine Clr Calc Pharmacy 57.5 ml/min; Globulin 3.2 gm/dl (2.5-4.0); Magnesium 2.1 mg/dl (1.7-2.4); Potassium 4.1 mmol/L (3.5-5.1)
[2024-11-22 05:02] LABS: Prostate SpecificAg Diagnostic 5.407 ng/ml (0-4)
[2024-11-22 05:14] LABS: Free PSA % 9.6 %
[2024-11-22] MEDS: LEVOTHYROXINE SODIUM 137 MCG TABLET PO SCH (07:53)
[2024-11-22] MEDS: BENZONATATE 100 MG CAPSULE PO SCH (08:02)
[2024-11-22] MEDS: ATORVASTATIN 40 MG TAB PO SCH (08:02)
[2024-11-22] MEDS: ASPIRIN 81 MG ECTAB PO SCH (08:02)
[2024-11-22] MEDS: DULoxetine HCL 60 MG CAP PO SCH (08:02)
[2024-11-22] MEDS: OSELTAMIVIR PHOSPHATE 75 MG CAP PO SCH (08:02)
[2024-11-22] MEDS: allopurinoL 100 MG TAB PO SCH (08:02)
[2024-11-22] MEDS: guaiFENesin 600 MG TABCR PO SCH (08:02)
[2024-11-22] MEDS: lisinopril 5 MG TAB PO SCH (08:02)
--- NOTE | 2024-11-22 10:03 | Hospitalist Progress Note ---
Date of Service November 22, 2024 Assessment & Plan (1) Hypoxia: (2) Influenza A: (3) Fall: (4) Generalized weakness: (5) Ambulatory dysfunction: (6) Hypomagnesemia: (7) Fatigue: (8) Idiopathic polyneuropathy: (9) Weight loss, unintentional: (10) Urinary incontinence: Plan Patient is a 69-year-old male with a past medical history of gout, hyperlipidemia, T2DM, hypothyroidism, insomnia, and ongoing fatigue and fever x 1 year with essentially negative workup. Patient presented to the ED after having 4 falls in the past 24 hours secondary to weakness found to be due to influenza A. Patient came hypoxic at 89% on room air and was 2 L on nasal cannula on admission. Patient's family is concerned about taking care of him at home with falls so he is being admitted for PT/OT evals and case management is consulted. #Influenza A Initially hypoxic, but now on room air CTA did not showa ny pathologic changes Continue Tamiflu, end date 11/23 continue Tyenol, mucinex isolation precautions #fall/ambulatory dysfunction/generalized weakness 4 falls in past 24 hours 2/2 weakness from influenza A, on a background of polyneuropathy CT head wnl PT/OT eval pending #chronic fever/myalgia/fatigue has had extensive workup, follows with hematology, rheumatology, neurology did have elevated IgA and had negative bone marrow biopsy previous tick borne panels negative EMG 05/06/24 showed polyneuropathy with mixed pathology 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 appears recent referral to autoinflammatory clinic with [facility] ESR 27, CRP 4.[address] showed no acute changes, showed chronic small vessel ischemic dz follow blood cultures ED provider ordered tick borne panel, Q fever titers, typus titers patient declines steroid use at this time Mag 1.8 - will give 1G IV mag weight loss - pt reports 20 lb weight loss over 2 weeks - diet consult #urinary incontinence reports 1 episode of incontinence when straining to ambulate 11/21 denies other urinary symptoms UA essentially negative - 1+ protein, 3+ glucose, trace ketones PSA added to am labs bladder scan and straight cath prn #incidental findings hiatal hernia and cholelithiasis without cholecystis seen on AP CT LFTs WNL follow with PCP Chronic stable diagnoses: DM - continue metformin HLD - continue statin gout - continue allopurinol hypothyroidism - continue levothyroxine insomnia - continue Cymbalta and melatonin 10mg HS renal protection - continue lisinopril 5mg daily VTE ppx: SCDs Diet: t2dm Dispo: med/tele Admission and Anticipated Discharge Date Admission Date: November 21, 2024 Subjective patient seen and examined, no new complaints today Review of Systems Review of Systems: All systems reviewed are negative, apart from the ones contained in the history. Physical Exam Physical Exam: The patient is awake, alert and oriented 3, well developed and well nourished, normocephalic and atraumatic, lying in bed and in no acute distress. HEENT--PERRL, EOMI, mucous membranes and oropharynx mildly dry Neck--supple. No JVD. No bruits. Thyroid normal, trachea midline, no adenopath y. Heart--normal S1 and S2. No murmurs, rubs or gallops. Lungs--clear bilaterally, no respiratory distress, no accessory muscle use. Abdomen--normal bowel sounds and soft. Extremities--no cyanosis or clubbing. No edema. Dermatologic--normal skin turgor, normal color, no abnormal lymph nodes, no rash. Neurologic--cranial nerves II through XII grossly intact. Rheumatologic--normal range of motion. Psychiatric--normal affect. Results & Data Results & Data Vital Signs (Past 12 Hours) Vital Signs Pulse Pulse Resp BP BP Pulse Ox Pulse Ox 11/22/24 07:31 71 18 130/70 93 11/22/24 07:28 71 11/22/24 06:30 69 20 115/70 98 11/22/24 05:40 94 11/22/24 05:30 82 16 117/71 96 11/22/24 05:00 80 16 138/82 95 11/22/24 04:01 70 19 128/67 92 11/22/24 03:30 74 17 130/75 93 11/22/24 03:00 69 18 121/74 91 11/22/24 02:33 73 19 138/67 94 11/22/24 02:00 73 18 130/88 92 11/22/24 01:45 81 15 133/84 94 11/22/24 01:30 74 20 126/75 93 11/22/24 01:15 75 18 123/74 90 11/22/24 01:00 78 18 126/75 90 11/22/24 00:45 77 18 117/77 94 11/22/24 00:30 79 22 118/84 91 11/22/24 00:30 79 20 118/84 92 11/21/24 22:03 82 O2 Del Method O2 Del Method 11/22/24 07:31 Room Air 11/22/24 07:28 11/22/24 06:30 Room Air 11/22/24 05:40 Room Air 11/22/24 05:30 11/22/24 05:00 11/22/24 04:01 11/22/24 03:30 11/22/24 03:00 11/22/24 02:33 11/22/24 02:00 11/22/24 01:45 11/22/24 01:30 11/22/24 01:15 11/22/24 01:00 11/22/24 00:45 11/22/24 00:30 11/22/24 00:30 Room Air 11/21/24 22:03 PG Care Time/CCT Total # of Minutes Spent Total Time Spent with Patient: Total time spent is greater than 50% in coordination of care (as documented) at patient's floor/unit and/or counseling patient: Coding Level of Care Code 02057 SUB INP/OBS CARE 2/35MIN Diagnoses Hypoxia R09.02 Influenza A J10.1 Fall W19.XXXA Generalized weakness R53.1 Ambulatory dysfunction R26.2 Hypomagnesemia E83.42 Fatigue R53.83 Idiopathic polyneuropathy G60.9 Weight loss, unintentional R63.4 Urinary incontinence R32 Time Spent (min) 35
--- NOTE | 2024-11-22 14:57 | Discharge Summary ---
Date of Service November 22, 2024 Admission HPI Per Admitting Provider Patient is a 69-year-old male with a past medical history of gout, hyperlipidemia, T2DM, hypothyroidism, insomnia, and ongoing fatigue and fever x 1 year with essentially negative workup. Patient presented to the ED after having 4 falls in the past 24 hours secondary to weakness found to be due to influenza A. Patient came hypoxic at 89% on room air and was 2 L on nasal cannula on admission. Patient's family is concerned about taking care of him at home with falls so he is being admitted for PT/OT evals and case management is consulted. Patient seen at bedside with his and son present. He stated that he fell 4 times over the past 24 hours due to weakness which she thinks is from the influenza A. He denies any dizziness, lightheadedness, chest pain, shortness of breath prior to the falls. He denies tripping over anything. His family reports that EMS came to the house 1 time last night for lift assistance but after his fourth fall this morning his family insisted he come to the ED for evaluation. He denies any head strike. He denies any current pain. He does endorse cough, shortness of breath, and worsening of his fever for a few days. Patient also stated he had 1 episode of urinary incontinence when he was straining to stand up earlier today, however denies denies any other urinary symptoms. He is concerned about his prostate, PSA added to a.m. labs. Patient's family reports he has had extensive workup for chronic low-grade fever and fatigue for roughly a year with essentially negative workup. His is concerned with his recent falls about taking care of him at home, patient and family agreeable to PT/OT evals and case management consulted. Steroids helping patient's symptoms, he declines use at this time as to resolve his glucose levels. Patient also reports a 20 pound weight loss over the past 2 weeks. He stated he does not eat well at home does not take any protein supplements/Ensure shakes. Agreeable to dietitian consult. He denies nicotine or alcohol use. He does not use oxygen at baseline. He got his home medications this morning but did not get his evening medications. He wishes to be DNR/DNI. Admission Exam (Per Admitting) Constitutional The patient is awake, alert and oriented 3, well developed and well nourished, normocephalic and atraumatic, lying in bed and in no acute distress. HEENT--PERRL, EOMI, mucous membranes and oropharynx mildly dry Neck--supple. No JVD. No bruits. Thyroid normal, trachea midline, no adenopathy. Heart--normal S1 and S2. No murmurs, rubs or gallops. Lungs--clear bilaterally, no respiratory distress, no accessory muscle use. Abdomen--normal bowel sounds and soft. Extremities--no cyanosis or clubbing. No edema. Dermatologic--normal skin turgor, normal color, no abnormal lymph nodes, no rash. Neurologic--cranial nerves II through XII grossly intact. Rheumatologic--normal range of motion. Psychiatric--normal affect. Discharge Data Consultations 11/21/24 22:33 ED Decision to Admit Stat Hospital Course (1) Hypoxia: (2) Influenza A: (3) Fall: (4) Generalized weakness: (5) Ambulatory dysfunction: (6) Hypomagnesemia: (7) Fatigue: (8) Idiopathic polyneuropathy: (9) Weight loss, unintentional: (10) Urinary incontinence: Plan Patient is a 69-year-old male with a past medical history of gout, hyperlipidemia, T2DM, hypothyroidism, insomnia, and ongoing fatigue and fever x 1 year with essentially negative workup. Patient presented to the ED after having 4 falls in the past 24 hours secondary to weakness found to be due to influenza A. Patient came hypoxic at 89% on room air and was 2 L on nasal cannula on admission. Patient's family is concerned about taking care of him at home with falls so he is being admitted for PT/OT evals and case management is consulted. #Influenza A Initially hypoxic, but now on room air CTA did not showa ny pathologic changes Continue Tamiflu, end date 11/23 continue Tyenol, mucinex isolation precautions #fall/ambulatory dysfunction/generalized weakness 4 falls in past 24 hours 2/2 weakness from influenza A, on a background of polyneuropathy CT head wnl PT/OT eval pending #chronic fever/myalgia/fatigue has had extensive workup, follows with hematology, rheumatology, neurology did have elevated IgA and had negative bone marrow biopsy previous tick borne panels negative EMG 05/06/24 showed polyneuropathy with mixed pathology 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 appears recent referral to autoinflammatory clinic with [facility] ESR 27, CRP 4.[address] showed no acute changes, showed chronic small vessel ischemic dz follow blood cultures ED provider ordered tick borne panel, Q fever titers, typus titers patient declines steroid use at this time Mag 1.8 - will give 1G IV mag weight loss - pt reports 20 lb weight loss over 2 weeks - diet consult #urinary incontinence reports 1 episode of incontinence when straining to ambulate 11/21 denies other urinary symptoms UA essentially negative - 1+ protein, 3+ glucose, trace ketones PSA added to am labs bladder scan and straight cath prn #incidental findings hiatal hernia and cholelithiasis without cholecystis seen on AP CT LFTs WNL follow with PCP Chronic stable diagnoses: DM - continue metformin HLD - continue statin gout - continue allopurinol hypothyroidism - continue levothyroxine insomnia - continue Cymbalta and melatonin 10mg HS renal protection - continue lisinopril 5mg daily VTE ppx: SCDs Diet: t2dm Dispo: med/tele Coding Level of Care Code 09490 INP/OBS DISCH >30 MIN Diagnoses Hypoxia R09.02 Influenza A J10.1 Fall W19.XXXA Generalized weakness R53.1 Ambulatory dysfunction R26.2 Hypomagnesemia E83.42 Fatigue R53.83 Idiopathic polyneuropathy G60.9 Weight loss, unintentional R63.4 Urinary incontinence R32 Time Spent (min) 35
[2024-11-22] MEDS ORDERED: MELATONIN 3 MG TAB PO SCH (21:00)
[2024-11-22] MEDS ORDERED: OSELTAMIVIR PHOSPHATE SUSP 30 MG/5 ML UDP PO SCH (21:00)
--- NOTE | 2024-11-22 22:00 | Electrocardiogram Report ---
Test Reason : Blood Pressure : */* mmHG Vent. Rate : 81 BPM Atrial Rate : 81 BPM P-R Int : 158 ms QRS Dur : 78 ms QT Int : 348 ms P-R-T Axes : 39 21 32 degrees QTcB Int : 404 ms Normal sinus rhythm Normal ECG No previous ECGs available Confirmed by Marvin Casper ([id number]) on 11/22/2024 9:59:44 PM Referred By: REFERRED SELF Confirmed By: Marvin aCsper
[2024-11-25 23:38] LABS: Babesia microti DNA Not Detected (Not Detected)
[2024-11-27 17:47] LABS: Q Fever IgG, Phase I NEGATIVE; Q Fever Phase I IgM Antibody NEGATIVE; Q Fever Phase II IgG Antibody NEGATIVE; Q Fever Phase II IgM Antibody NEGATIVE; R. typhi IgG Ab NOT DETECTED; R. typhi IgM Ab NOT DETECTED; RMSF IgG Ab NOT DETECTED; RMSF IgM Ab NOT DETECTED
== END 2024-11-22 15:10 | disposition home or self-care (01) | DRG 195 ==
LOC: ED 16:57 → SUATTDRO 21:10 → EDINP 21:10